=== PATIENT | female | born 1995 | race African-American/Black ===

== ENCOUNTER 2018-01-08 14:09 | Emergency (ER) | payer OTHER ==
[2018-01-08] MEDS: NS 1,000 ML IV (15:15)
[2018-01-08] MEDS: ONDANSETRON 4MG/2ML VIAL (J2405) IV (15:15)
[2018-01-08 15:40] LABS: KETONE, URINE AUTO RFX NEGATIVE (NEGATIVE); LEUKOCYTE ESTERASE UR AUTO RFX NEGATIVE (NEGATIVE); MUCUS, URINE RFX SMALL (NEGATIVE); NITRITE, URINE AUTO RFX NEGATIVE (NEGATIVE); RBC, URINE AUTO RFX 3 /HPF (0-3); SPECIFIC GRAVITY UR AUTO RFX 1.025 (1.002-1.035); SQUAM EPITHELIAL CELL UR AURFX 0 /HPF (0-6); WBC, URINE AUTO RFX 0 /HPF (0-3)
== END 2018-01-08 16:38 | disposition home or self-care (01) ==
LOC: M ED 14:09
DX: O21.9 Vomiting of pregnancy, unspecified (principal); Z3A.01 Less than 8 weeks gestation of pregnancy; Z88.0 Allergy status to penicillin
CPT/HCPCS: J2405

== ENCOUNTER 2018-03-31 09:17 | Emergency (ER) | payer OTHER ==
[2018-03-31] MEDS: GI COCKTAIL 50ML BTL(HYOSCYAMINE/MAALOX/LIDOCAINE VISCOUS)(1:3:1) PO (10:15)
[2018-03-31] MEDS: ACETAMINOPHEN TAB 650MG DOSE (2X325MG) PO (10:16)
[2018-03-31] MEDS: LIDOCAINE 5% (LIDODERM) PATCH TD (10:17)
[2018-03-31] MEDS ORDERED: **NOTE PATIENT COMMENT** MISC XX (21:00)
== END 2018-03-31 10:41 | disposition home or self-care (01) ==
LOC: M ED 09:17
DX: O99.619 Diseases of the digestive system complicating pregnancy, unspecified trimester (principal); K21.9 Gastro-esophageal reflux disease without esophagitis; O99.89 Other specified diseases and conditions complicating pregnancy, childbirth and the puerperium; M54.5 Low back pain; G89.29 Other chronic pain; Z3A.00 Weeks of gestation of pregnancy not specified; Z79.899 Other long term (current) drug therapy
CPT/HCPCS: 99283

== ENCOUNTER 2018-04-01 10:25 | Emergency (ER) | payer OTHER ==
[2018-04-01 11:26] LABS: KETONE, URINE AUTO RFX TRACE mg/dL (NEGATIVE); LEUKOCYTE ESTERASE UR AUTO RFX TRACE (NEGATIVE); MUCUS, URINE RFX SMALL (NEGATIVE); NITRITE, URINE AUTO RFX NEGATIVE (NEGATIVE); RBC, URINE AUTO RFX 4 /HPF (0-3); SPECIFIC GRAVITY UR AUTO RFX 1.017 (1.002-1.035); SQUAM EPITHELIAL CELL UR AURFX 1 /HPF (0-6); WBC, URINE AUTO RFX 3 /HPF (0-3)
[2018-04-01 12:14] LABS: BEDSIDE GLUCOSE 71 MG/DL (70-105)
== END 2018-04-01 12:44 | disposition home or self-care (01) ==
LOC: M ED 10:25
DX: O26.892 Other specified pregnancy related conditions, second trimester (principal); M54.5 Low back pain; Z3A.19 19 weeks gestation of pregnancy; Z88.0 Allergy status to penicillin
CPT/HCPCS: 76811